=== PATIENT | female | born 1935 | race African-American/Black ===

== ENCOUNTER 2018-12-15 16:38 | Emergency (ER) | payer MEDICARE, MEDICAID ==
[~2018-12-15] VITALS: Ht 152.4 cm; Wt 134.8 kg
[2018-12-15 16:51] LABS: GLUCOSE,POINT OF CARE 85 MG/DL (70-110)
[2018-12-15] MEDS ORDERED: PANT40TA25 PO (17:01)
[2018-12-15] MEDS ORDERED: LEVO25TA9 PO (17:01)
[2018-12-15] MEDS ORDERED: METF-960 PO (17:01)
[2018-12-15] MEDS ORDERED: LISI-660 PO (17:01)
[2018-12-15] MEDS ORDERED: AMLO2.5T4 PO (17:01)
[2018-12-15] MEDS ORDERED: DULO20CA30 PO (17:01)
[2018-12-15] MEDS ORDERED: OXYB5 PO (17:01)
[2018-12-15] MEDS ORDERED: GABA-529 PO (17:01)
[2018-12-15] MEDS ORDERED: HYDR25TA PO (17:01)
[2018-12-15] MEDS ORDERED: CARV3 PO (17:01)
[2018-12-15] MEDS ORDERED: PRAV10TA39 PO (17:01)
[2018-12-15 17:32] LABS: BASOPHILS % (AUTO) 0.8 % (0.0-2.0); EOSINOPHILS % (AUTO) 2.8 % (1.0-6.0); HEMATOCRIT 33.8 % (36-46); HEMOGLOBIN 11.4 g/dL (12.0-16.0); LYMPHOCYTES # (AUTO) 1.6 K/uL (1.0-4.8); LYMPHOCYTES % (AUTO) 23.1 % (22.0-44.0); MEAN CORPUSCULAR HEMOGLOBIN 31.3 pg (26.0-34.0); MEAN CORPUSCULAR HGB CONC 33.6 G/dL (31.0-37.0); MEAN CORPUSCULAR VOLUME 93 fL (80-100); MONOCYTES # (AUTO) 0.8 K/uL (0.1-1.0); NEUTROPHILS # (AUTO) 4.3 K/uL (1.8-7.7); NEUTROPHILS % (AUTO) 61.3 % (40.0-70.0); PLATELET COUNT (AUTO) 229 K/uL (150-450); RED BLOOD CELL COUNT(AUTO) 3.64 MIL/uL (4.00-5.20); RED CELL DISTRIBUTION WIDTH 14.4 % (11.5-14.5)
[2018-12-15 17:41] LABS: ANION GAP 11 mmol/L (8-16); CALCIUM, TOTAL 9.2 mg/dL (8.8-10.5); CARBON DIOXIDE 27 mmol/L (22-29); CHLORIDE 104 mmol/L (98-107); CREATININE 1.05 mg/dL (0.60-1.30); GLOMERULAR FILTR. RATE CALC > 60 mL/min (>60); GLUCOSE,RANDOM 100 mg/dL (70-110); POTASSIUM 3.4 mmol/L (3.5-5.1); SODIUM SERUM 142 mmol/L (136-145); UREA NITROGEN, BLOOD 22 mg/dL (7-18)
[2018-12-15 17:46] LABS: PROTHROMBIN TIME 10.4 SEC (9.4-11.6)
[2018-12-15 17:58] LABS: B-TYPE NATRIURETIC PEPTIDE 69 pg/mL (0-100)
[2018-12-15 18:06] LABS: ALANINE AMINOTRANSFERASE 22 U/L (12-78); ALBUMIN 3.6 g/dL (3.4-5.0); ALKALINE PHOSPHATASE 53 U/L (46-116); ASPARTATE AMINOTRANSFERASE 22 U/L (15-37); BILIRUBIN,TOTAL 0.4 mg/dL (0.1-1.0); CREATINE KINASE, TOTAL ONLY 129 U/L (26-192); TOTAL PROTEIN, SERUM 7.7 g/dL (6.4-8.2)
[2018-12-15 19:12] LABS: FREE T4 (FREE THYROXINE) 1.48 ng/dL (0.76-1.46); THYROID STIMULATING HORMONE 1.32 uIU/mL (0.36-3.74)
[2018-12-15 20:00] VITALS: BP 144/77
== END 2018-12-15 20:25 | disposition left against medical advice (07) ==
LOC: EMS 16:40
DX: R60.0 Localized edema (principal); M79.89 Other specified soft tissue disorders; E11.9 Type 2 diabetes mellitus without complications; I10 Essential (primary) hypertension; Z79.84 Long term (current) use of oral hypoglycemic drugs; Z79.899 Other long term (current) drug therapy
CPT/HCPCS: 84439; 84443; 93005